=== PATIENT | female | born 1980 | race American Indian/Alaskan Native ===

== ENCOUNTER 2018-01-05 21:19 | Emergency (ER) | payer OTHER ==
[2018-01-05 21:20] VITALS: BMI 25.1
[2018-01-05 21:28] VITALS: O2SAT 100
[2018-01-05] MEDS ORDERED: Sodium Chloride 0.9% 1,000 ML IV STA (22:46)
--- NOTE | 2018-01-05 22:56 | C.PDOC ---
History Of Present Illness 37 y/o F c PMHx anemia p/w R sided pelvic pain x 3 days. Pain is sharp, nonradiating, intermittent, moderate to severe in intensity, associated with nausea. Patient notes her period which is typically regular did not come this past week. Denies dysuria, rash, vomiting, diarrhea, constipation. Time Seen by Provider: 01/05/18 22:38 Chief Complaint (Nursing): Dizziness/Lightheaded Past Medical History Vital Signs: Last Vital Signs Temp 98.4 F 01/06/18 00:25 Pulse 86 01/06/18 00:25 Resp 20 01/06/18 00:25 BP 103/65 01/06/18 00:25 Pulse Ox 100 01/06/18 00:25 - Medical History PMH: Anemia, Bronchitis - [facility] Procedures PACKED CELL TRANSFUSION (06/20/14) Family History: States: Unknown Family Hx - Social History Hx Tobacco Use: No Hx Alcohol Use: No Hx Substance Use: No - Immunization History Hx Tetanus Toxoid Vaccination: No Hx Influenza Vaccination: No Hx Pneumococcal Vaccination: No Review Of Systems Except As Marked, All Systems Reviewed And Found Negative. Constitutional: Negative for: Fever Cardiovascular: Negative for: Chest Pain Physical Exam - Physical Exam Additional Physical Exam Comments: Constitutional: No acute distress. Head: Normocephalic. Atraumatic. Eyes: PERRL. ENT: Moist mucous membranes. Neck: Supple. Cardiovascular: Regular rate. Radial pulse 2+ bilaterally. Chest: No tenderness. Respiratory: Clear to auscultation bilaterally. GI: Soft. Nontender. Nondistended. Back: No CVA tenderness. Musculoskeletal: No tenderness or swelling of extremities. Skin: No rash. Neurologic: Alert, no focal deficit. ED Course And Treatment - Laboratory Results Result Diagrams: 01/05/18 23:01 01/05/18 23:01 O2 Sat by Pulse Oximetry: 100 Medical Decision Making Medical Decision Making: Urine preg positive. Will send for US to rule out ectopic vs cyst vs torsion. Patient declined pain medication and nausea medication at this time. FINDINGS: Gestation: Single live intrauterine gestation. heart rate of 107 beats per minute. [place]-rump length of 0.3 cm, correlating with gestational age of 6 weeks 0 days. Uterus/cervix: Two uterine masses, larger measuring 1.0 x 1.0 x 1.3 cm. Probable 0.3 x 0.4 x 0.6 cm myometrial cyst. No subchorionic hemorrhage. Closed cervix. Ovaries: RIGHT ovary: Probable 1.5 x 1.2 x 1.6 cm corpus luteal cyst. LEFT ovary : Normal. No adnexal masses. Free fluid: No significant free fluid. IMPRESSION: 1. Single live intrauterine gestation. 2. Probable fibroid uterus. 3. Incidental/non-acute findings are described above. Discharged home, f/u OBGYN, return to ED for worsening pain, fever, or any other problem. Disposition - Disposition Disposition: HOME/ ROUTINE Disposition Time: 00:45 Condition: STABLE Additional Instructions: FINDINGS: Gestation: Single live intrauterine gestation. heart rate of 107 beats per minute. [place]-rump length of 0.3 cm, correlating with gestational age of 6 weeks 0 days. Uterus/cervix: Two uterine masses, larger measuring 1.0 x 1.0 x 1.3 cm. Probable 0.3 x 0.4 x 0.6 cm myometrial cyst. No subchorionic hemorrhage. Closed cervix. Ovaries: RIGHT ovary: Probable 1.5 x 1.2 x 1.6 cm corpus luteal cyst. LEFT ovary : Normal. No adnexal masses. Free fluid: No significant free fluid. IMPRESSION: 1. Single live intrauterine gestation. 2. Probable fibroid uterus. 3. Incidental/non-acute findings are described above. Instructions: Ovarian Cysts Forms: [facility] ([place]i) - Clinical Impression Clinical Impression: Ovarian cyst, Fibroid, Intrauterine
[2018-01-05] MEDS ORDERED: Sodium Chloride 0.9% 1,000 ML ONE (22:59)
[2018-01-05 23:04] LABS: BASO % 0.5 % (0.0-2.0); EOS % 0.3 % (0.0-4.0); HEMOGLOBIN 11.8 g/dL (11.0-16.0); LYMPH % 37.7 % (20.0-40.0); MEAN CELL VOLUME 89.7 fL (81.0-99.0); MEAN CORPUSCULAR HEMOGLOBIN 30.9 pg (27.0-31.0); MEAN CORPUSCULAR HGB CONC 34.5 g/dL (33.0-37.0); MONO # 0.4 K/uL (0.0-0.8); NEUT # 2.9 K/uL (1.8-7.0); NEUT % 53.5 % (50.0-75.0); NRBC % 0.1 % (0.0-2.0); RBC 3.8 Mil/uL (3.80-5.20); RED CELL DISTRIBUTION WIDTH 13.5 % (11.5-14.5); WHITE BLOOD COUNT 5.4 K/uL (4.8-10.8)
[2018-01-05 23:14] LABS: SQUAMOUS EPITHIAL 1 /hpf (0-5); URINE BILIRUBIN NEGATIVE (NEGATIVE); URINE BLOOD NEGATIVE (NEGATIVE); URINE CALCIUM OXALATE CRYSTALS FEW /hpf (<OCC); URINE CLARITY Hazy (Clear); URINE COLOR Yellow (YELLOW); URINE GLUCOSE (UA) NORMAL (Normal); URINE LEUKOCYTE ESTERASE NEG Leu/uL (Negative); URINE PROTEIN NEGATIVE (NEGATIVE)
[2018-01-05 23:19] LABS: ALB/GLOB RATIO 1.2 (1.0-2.1); ALBUMIN 4.2 g/dL (3.5-5.0); ALT/SGPT 22 U/L (9-52); AST/SGOT 27 U/L (14-36); BLOOD UREA NITROGEN 11 mg/dL (7-17); CALCIUM 9.6 mg/dl (8.6-10.4); GFR AFRICAN-AMERICAN > 60; GFR NON-AFRICAN AMERICAN > 60; LIPASE 248 U/L (23-300)
[2018-01-06 00:27] VITALS: BP 103/65; PULSE 86; RESP 20; TEMP 98.4
--- NOTE | 2018-01-06 13:22 | US ---
Pelvic ultrasound History: Pelvic pain. . Comparison: None available. Technique: Real-time sonography was performed through the pelvis utilizing transabdominal and transvaginal techniques. Findings: Uterus: 10.4 x 6.7 x 3.6 centimeters. Heterogeneous echotexture. Anteverted. Cervix measures 3.7 centimeters. Two heterogeneous uterine masses seen in the posterior midportion of the uterus measuring 1.0 x 0.9 x 1.3 centimeters and 0.8 x 0.8 x 0.9 centimeters respectively suggestive for fibroid lesions. Additional probable hypoechoic myometrial cystic lesion/cyst measuring 3 x 4 x 6 millimeters in the uterus. Intrauterine gestational sac measuring 1.7 centimeters corresponding to a gestational age of 6 weeks 0 days. Yolk sac identified measuring 2 millimeters. [place]-rump length measures 3.3 millimeters, corresponding to a gestational age of 6 weeks 0 days. heart rate of 170 beats per minute. No free fluid in pelvic cul-de-sac. Right ovary: 3.6 x 2.4 x 3.5 centimeters. Normal flow. Heterogeneous cyst/corpus luteal cyst measuring 1.5 x 1.2 x 1.6 centimeters. Left ovary: 2.7 x 2.1 x 1.9 centimeters. Normal flow. Impression: Single live intrauterine gestation corresponding to a gestational age of 6 weeks 0 days by [place]-rump length of 3.3 millimeters. heart rate of 107 beats per minute. Probable fibroid uterus. Myometrial cyst/cystic lesion within the mid uterus measuring up to 6 millimeters. Clinical correlation. Right ovarian heterogeneous probable corpus luteal cyst measuring up to 1.6 centimeters. Additional findings as above. Limited 1st trimester ultrasound for viability purposes only. Continued interval followup with serial ultrasound, serial HCG levels, and gynecological consultation would be helpful if clinically indicated. These findings were preliminarily reported at 12:40 a.m. on 01/06/[address] Eduardo Parra from [facility].
== END 2018-01-06 01:09 | disposition home or self-care (01) ==
LOC: C.ER 21:19
DX: O34.11 Maternal care for benign tumor of corpus uteri, first trimester (principal); D25.9 Leiomyoma of uterus, unspecified; O34.81 Maternal care for other abnormalities of pelvic organs, first trimester; N83.201 Unspecified ovarian cyst, right side; Z3A.01 Less than 8 weeks gestation of pregnancy
CPT/HCPCS: 76805; 76817; 80053; 81001; 83690; 84702; 85025; 86850; 86900; 87086; 96360; 99285; J7030